=== PATIENT | male | born 1990 | race Caucasian/White ===

== ENCOUNTER 2021-09-21 15:41 | Emergency (ER) | payer OTHER ==
[2021-09-21 18:07] LABS: BASOPHIL 0.3 % (0-2); EOSINOPHIL 0 % (0-5); HGB 16.3 g/dl (13.2-18.0); LYMPHOCYTE 25.1 % (15-48); MCHC 35.4 g/dL (32.0-36.0); MCV 78.9 fL (78.0-100.0); MONOCYTE 12.4 % (0-12); MPV 9.7 fL (6.0-9.5); NEUTROPHIL 61.5 % (41-80); NRBC 0; PLT 167 K/uL (150-400); RBC 5.83 M/uL (4.70-6.00); RDW 11.8 % (11.5-14.0)
[2021-09-21 18:19] LABS: BUN/CREAT RATIO (CALC) 12.5 RATIO; CREATININE 0.64 mg/dL (0.67-1.17); POTASSIUM 4.3 mmol/L (3.5-5.1)
[2021-09-21 19:42] LABS: BILIRUBIN NEGATIVE (NEGATIVE); BLOOD TRACE-INTACT Ery/uL (NEGATIVE); CLARITY CLEAR (CLEAR); COLOR YELLOW (YELLOW); GLUCOSE (U) NORMAL (NORMAL); LEUKOCYTES NEGATIVE Leu/uL (NEGATIVE); NITRITE NEGATIVE (NEGATIVE); PROTEIN NEGATIVE (NEGATIVE); SPECIFIC GRAVITY <=1.005 (1.001-1.030); UROBILINOGEN 0.2 mg/dL (0.2-1.0)
[2021-09-21] MEDS ORDERED: VENTOLIN HFA IN18 GM INH (20:28)
[2021-09-21] MEDS ORDERED: TESSALON PERLE100 MG PO (20:28)
[2021-09-21] MEDS ORDERED: ZOFRAN4 M1 PO (20:28)
[2021-09-22] MEDS ORDERED: DECADRON6 MG PO (01:39)
[2021-09-22] MEDS ORDERED: XARELTO15 MG PO (01:39)
[2021-09-22] MEDS ORDERED: AZITHROMYCIN250 MG PO (01:39)
== END 2021-09-22 02:18 | disposition home or self-care (01) ==
LOC: FER 15:41
PROVIDERS: Nurse Practitioner Family
DX: U07.1 COVID-19 (principal); E86.0 Dehydration; Z23 Encounter for immunization
CPT/HCPCS: 36415; 36600; 71045; 71275; 80048; 81001; 82803; 85025; 96372; J1650; J1885; J2405; J7030; M0245; Q0245; Q9967